=== PATIENT | male | born 1965 | race Caucasian/White ===

== ENCOUNTER 2019-08-06 14:04 | Emergency (ER) | payer OTHER ==
[~2019-08-06] VITALS: Ht 190.5 cm; Wt 99.8 kg
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
--- NOTE | 2019-08-06 14:50 | NUR ---
PT TAKEN TO XRAY
[2019-08-06] MEDS ORDERED: HYDROCODONE/APAP 10/325MG 1 EA TABLET ONE (14:58)
[2019-08-06] MEDS ORDERED: HYDROCODONE/APAP 10/325MG 1 EA TABLET PO ONE (15:00)
--- NOTE | 2019-08-06 15:15 | NUR ---
PT BACK FROM XRAY
--- NOTE | 2019-08-06 15:53 | NUR ---
Patient discharged to home in stable condition. Written and verbal after care instructions given. Patient verbalizes understanding of instruction.
[2019-08-06 15:54] VITALS: BP 124/76
== END 2019-08-06 15:54 | disposition home or self-care (01) ==
LOC: ER 14:06
DX: S80.02XA Contusion of left knee, initial encounter (principal); F32.9 Major depressive disorder, single episode, unspecified; Z60.2 Problems related to living alone; V29.09XA Motorcycle driver injured in collision with other motor vehicles in nontraffic accident, initial encounter; Y93.I9 Activity, other involving external motion; Y92.488 Other paved roadways as the place of occurrence of the external cause; Y99.8 Other external cause status
CPT/HCPCS: 72100-TC; 72220-TC; 73562; 73590-TC

== ENCOUNTER 2022-08-22 14:15 | Emergency (ER) | payer OTHER ==
[~2022-08-22] VITALS: Ht 190.5 cm; Wt 99.8 kg
[2022-08-22 14:24] VITALS: BP 123/72
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
--- NOTE | 2022-08-22 14:44 | NUR ---
X-RAY ELBOW TAKEN
[2022-08-22] MEDS ORDERED: ACETAMINOPHEN ES 500 MG TABLET ONE (15:13)
[2022-08-22] MEDS ORDERED: IBUPROFEN 600 MG TABLET ONE (15:14)
[2022-08-22] MEDS ORDERED: ACETAMINOPHEN ES 500 MG TABLET PO ONE (15:30)
[2022-08-22] MEDS ORDERED: IBUPROFEN 600 MG TABLET PO ONE (15:30)
== END 2022-08-22 15:37 | disposition home or self-care (01) ==
LOC: ER 14:40
DX: S50.01XA Contusion of right elbow, initial encounter (principal); M19.90 Unspecified osteoarthritis, unspecified site; F32.A Depression, unspecified; Z60.2 Problems related to living alone; W18.30XA Fall on same level, unspecified, initial encounter; Y93.89 Activity, other specified; Y92.89 Other specified places as the place of occurrence of the external cause; Y99.8 Other external cause status
CPT/HCPCS: 73080-TC; A4649

== ENCOUNTER 2023-07-16 09:34 | Emergency (ER) | payer MEDICAID, OTHER ==
[~2023-07-16] VITALS: Ht 190.5 cm; Wt 99.8 kg
[2023-07-16] MEDS ORDERED: IBUPROFEN 400 MG TABLET PO ONE (10:00)
[2023-07-16] MEDS ORDERED: IBUPROFEN 400 MG TABLET ONE (10:00)
[2023-07-16 11:53] VITALS: BP 134/68; TEMP 98.4; O2SAT 100
== END 2023-07-16 11:53 | disposition home or self-care (01) ==
LOC: ER 09:38
DX: M25.562 Pain in left knee (principal); F32.A Depression, unspecified; Z60.2 Problems related to living alone
CPT/HCPCS: 73564-TC